=== PATIENT | female | born 1950 | race Caucasian/White ===

== ENCOUNTER 2023-02-11 09:53 | Inpatient (IN) ==
--- NOTE | 2023-02-04 08:50 | Anesthesiology Consultation ---
Date of Service February 04, 2023 Assessment & Plan (1) Encounter for pre-operative examination: Plan - cardiology clearance 01/31/23: "...low cardiac risk." - cardiology 11/25/22: "...follow-up of dyslipidemia and mild mitral valve diseas e, hypertension...doing well since last evaluation...1 episode in the fall of chest discomfort and was seen in the ER was felt to be due to GERD. No cardiac issues were found at that time and the chest pain resolved and has not re occurred...hypertension well-controlled...will update echocardiogram..." subsequently completed 12/2022, mild valvular changes. 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 Chart Review Chart Review: Acceptable Risk for Surgery and Patient NOT seen in Pre Admission Testing History Surgery Operation Date: 02/11/23 11:25 Proposed Procedures p L4-L5 Decompression and Fusion, Spinal Cord Monitoring - Burt Guerrero DO Height/Weight Height: 5 ft 4 in Weight: 61.689 kg Allergies Allergy/AdvReac Type Severity Reaction Status Date / Time dicyclomine [From Bentyl] Allergy Unknown Hives Verified 02/03/23 08:31 Sulfa (Sulfonamide Allergy Unknown Hives Verified 02/03/23 08:31 Antibiotics) Medications Home Medications Medication Instructions Recorded Confirmed Last Taken Cbd Oil 1 dose topical UD PRN Pain 02/03/23 02/03/23 Unknown Fb Guard 1 dose PO UD PRN Diarrhea 02/03/23 02/03/23 Unknown Fd Guard 1 dose PO UD PRN Diarrhea 02/03/23 02/03/23 Unknown baclofen 10 mg tablet 10 mg PO HS 02/03/23 02/03/23 Unknown calcium-vitamin D3-vitamin K 500 1 tab PO QAM 02/03/23 02/03/23 Unknown mg-100 unit-40 mcg chewable tablet cevimeline 30 mg capsule 1 cap PO BID 02/03/23 02/03/23 Unknown cyclosporine 0.05 % eye drops in a 1 drp ophthalmic (eye) BID 02/03/23 02/03/23 Unknown dropperette (Restasis) hydrochlorothiazide 25 mg tablet 25 mg PO QAM 02/03/23 02/03/23 Unknown hydroxychloroquine 200 mg tablet 200 mg PO BID 02/03/23 02/03/23 Unknown latanoprost 0.005 % eye drops 1 drp ophthalmic (eye) QPM 02/03/23 02/03/23 Unknown multivitamin 2 tab PO QAM 02/03/23 02/03/23 Unknown omeprazole 20 mg capsule,delayed 20 mg PO QAM 02/03/23 02/03/23 Unknown release simvastatin 20 mg tablet 20 mg PO HS 02/03/23 02/03/23 Unknown valsartan 80 mg capsule 80 mg PO QAM 02/03/23 02/03/23 Unknown Past Medical History Medical History (Updated 02/04/23 @ 08:56 by Olga Gonzalez PA-C) Acid reflux GI symptoms Summer 2022/multiple testing (-) f/u with GI,abigail/romeo 02/03/23. History of high cholesterol History of kidney stones History of skin cancer removed. HTN (hypertension) Nausea and vomiting after administration of anesthetic agent Sjogren's disease Spinal stenosis Past Surgical History Surgical History History of bilateral cataract extraction History of colonoscopy History of endoscopy History of hysterectomy COMPLETE History of partial hysterectomy History of urologic surgery for removal of kidney stones. History of vitrectomy Social History Smoking Status: Never smoker Do You Dip or Chew Tobacco: No Hx Alcohol Use: No Hx Substance Use: No substance use type: does not use Lab Results Anesthesia Preop Results Results Anesthesia Widget: WBC 4.13 K/ul (4.8-10.8) L 01/31/23 Hgb 11.9 g/dl (12.0-16.0) L 01/31/23 Hct 35.1 % (37.0-47.0) L 01/31/23 Plt 278 K/uL (130-400) 01/31/23 Na 140 mmol/L (136-145) 01/31/23 K 3.9 mmol/L (3.5-5.1) 01/31/23 Cl 103 mmol/L (98-107) 01/31/23 CO2 30 mmol/L (21-32) 01/31/23 BUN 14 mg/dl (6-23) 01/31/23 Creat 0.85 mg/dl (0.6-1.2) 01/31/23 Glucose Level 91 mg/dl (70-99(Fasting)) 01/31/23 PT 11.6 Seconds (9.0-12.0) 01/31/23 PTT 26.7 Seconds (21.0-31.0) 01/31/23 INR 1.1 (0.9-1.1) 01/31/23 Urine Color Yellow 01/31/23 Urine Appearance Clear (Clear) 01/31/23 Urine pH 7.0 (4.5-7.5) 01/31/23 Urine Specific Venus 1.008 (1.000-1.030) 01/31/23 Urine Protein Negative (Negative) 01/31/23 Urine Glucose (UA) Negative (Negative) 01/31/23 Urine Ketones Negative (Negative) 01/31/23 Urine Blood Negative (Negative) 01/31/23 Urine Nitrite Negative (Negative) 01/31/23 Urine Bilirubin Negative (Negative) 01/31/23 Urine Urobilinogen Negative (Negative) 01/31/23 Urine Leukocyte Esterase 3+ (Negative) H 01/31/23 Urine WBC (Auto) 5-10 /hpf (0-5) H 01/31/23 Urine RBC (Auto) 0-4 /hpf (0-4) 01/31/23 Urine Hyaline Casts (Auto) 0 /lpf (0-5) 01/31/23 Urine Epithelial Cells (Auto) 10-20 /lpf (0-5) H 01/31/23 Urine Bacteria (Auto) Negative (Negative) 01/31/23 Blood Type B Positive 01/31/23 Antibody Screen NEGATIVE 01/31/23 Testing Chest X-Ray Date: 01/31/23 No acute cardiopulmonary findings Echocardiogram Date: 12/29/22 EF 50-55% Mild aortic regurgitation Mild mitral regurgitation Mild tricuspid regurgitation Normal pulmonary artery pressures Grade I diastolic dysfunction Stress Test Date: 04/19/18 Exercise METS 10 MPHR 101% Negative test, no evidence of myocardial ischemia or infarction Other Testing Carotid doppler 12/29/22 < 50% stenosis left carotid Minimal atherosclerotic disease right carotid
[~2023-02-11 09:53] MED LIST: ACETAMINOPHEN 500 MG TAB PO SCH; GABAPENTIN 300 MG CAP PO SCH; LR 15ML/HR IV SCH; LR 60ML/HR IV SCH; ceFAZolin 2000MG 2,000 MG/15 ML SYR IV SCH
[2023-02-11] MEDS ORDERED: PROPOFOL IV EMULSION 10 MG/ML 20 ML VIAL IV ONE (10:40)
[2023-02-11] MEDS ORDERED: fentaNYL citrate PF 100 MCG/2 ML VIAL ONE (10:40)
[2023-02-11] MEDS ORDERED: ONDANSETRON INJ 2 MG/ML 2 ML VIAL ONE (10:41)
[2023-02-11] MEDS ORDERED: ROCURONIUM BROMIDE 10 MG/ML 5 ML VIAL IV ONE (10:41)
[2023-02-11] MEDS ORDERED: MIDAZOLAM HCL 1 MG/ML 2ML VIAL ONE (10:41)
[2023-02-11] MEDS ORDERED: SUGAMMADEX SODIUM 200 MG/2 ML VIAL IV ONE (10:51)
[2023-02-11] MEDS ORDERED: LABETALOL HCL IV 5 MG/ML 20ML IV PRN (10:59)
[2023-02-11] MEDS ORDERED: PROMETHAZINE HCL 12.5 MG in SODIUM CHLORIDE 0.9% 50 ML IV PRN ×2 (10:59→15:25)
[2023-02-11] MEDS ORDERED: FLUMAZENIL 0.1 MG/1 ML 10 ML VIAL IV PRN (10:59)
[2023-02-11] MEDS ORDERED: ePHEDrine sulfate 50 MG/ML AMP IV PRN (10:59)
[2023-02-11] MEDS ORDERED: HYDROmorphone INJ 1 MG/ML SYRINGE IV PRN ×2 (10:59→15:25)
[2023-02-11] MEDS ORDERED: ONDANSETRON INJ 2 MG/ML 2 ML VIAL IV PRN ×2 (10:59→15:25)
[2023-02-11] MEDS ORDERED: NALOXONE HCL 0.4 MG/1 ML VIAL/CARP IV PRN ×2 (10:59→15:25)
--- NOTE | 2023-02-11 11:10 | History & Physical Bridge Note ---
Date of Service February 11, 2023 History & Physical Bridge Note I have examined the patient, reviewed the History & Physical and in the interval since the performance of the History & Physical I have noted the following changes of clinical significance: no changes noted
--- NOTE | 2023-02-11 11:11 | History & Physical Report ---
Date of Service February 11, 2023 Assessment & Plan (1) Neurogenic claudication due to lumbar spinal stenosis: Plan: L4-L5 decompression and fusion History of Present Illness Chief Complaint: Back and leg pain Primary Care Provider: Darci Block This is a 72-year-old female presents with chronic persistent back pain since course of nonoperative care is here for surgical invention. Allergies Allergy/AdvReac Type Severity Reaction Status Date / Time dicyclomine [From Bentyl] Allergy Unknown Hives Verified 02/11/23 10:19 Sulfa (Sulfonamide Allergy Unknown Hives Verified 02/11/23 10:19 Antibiotics) Home Medications Medication Instructions Recorded Confirmed Type Cbd Oil 1 dose topical UD PRN Pain 02/03/23 02/11/23 History Fb Guard 1 dose PO UD PRN Diarrhea 02/03/23 02/11/23 History Fd Guard 1 dose PO UD PRN Diarrhea 02/03/23 02/11/23 History baclofen 10 mg tablet 10 mg PO HS 02/03/23 02/11/23 History calcium-vitamin D3-vitamin K 500 1 tab PO QAM 02/03/23 02/11/23 History mg-100 unit-40 mcg chewable tablet cevimeline 30 mg capsule 1 cap PO BID 02/03/23 02/11/23 History cyclosporine 0.05 % eye drops in a 1 drp ophthalmic (eye) BID 02/03/23 02/11/23 History dropperette (Restasis) hydrochlorothiazide 25 mg tablet 25 mg PO QAM 02/03/23 02/11/23 History hydroxychloroquine 200 mg tablet 200 mg PO BID 02/03/23 02/11/23 History latanoprost 0.005 % eye drops 1 drp ophthalmic (eye) QPM 02/03/23 02/11/23 History multivitamin 2 tab PO QAM 02/03/23 02/11/23 History omeprazole 20 mg capsule,delayed 20 mg PO QAM 02/03/23 02/11/23 History release simvastatin 20 mg tablet 20 mg PO HS 02/03/23 02/11/23 History valsartan 80 mg capsule 80 mg PO QAM 02/03/23 02/11/23 History Past Med/Surg History Medical History (Updated 02/11/23 @ 11:11 by Burt Guerrero DO) Acid reflux GI symptoms Summer 2022/multiple testing (-) f/u with GI,abigail/helderany 02/03/23. History of high cholesterol History of kidney stones History of skin cancer removed. HTN (hypertension) Nausea and vomiting after administration of anesthetic agent Sjogren's disease Spinal stenosis Surgical History History of bilateral cataract extraction History of colonoscopy History of endoscopy History of hysterectomy COMPLETE History of partial hysterectomy History of urologic surgery for removal of kidney stones. History of vitrectomy Social History Smoking Status: Never smoker Do You Dip or Chew Tobacco: No; Hx Alcohol Use: No Hx Substance Use: No Preferred Language: Mosotho Communication Ability: Effective [employer] Radio Operator Required: No Beliefs That Will Affect Care: None Current Living Situation: Spouse Other Information That Helps Us Care for You: No Feels Safe at Home: Yes Assistive Devices: Other Assistive Devices Comment: lower partial Physical Exam Physical Exam: Patient is alert and oriented Heart regular rhythm Lungs clear Results & Data Results & Data Vital Signs (Past 12 Hours) Vital Signs Temp Pulse Resp BP Pulse Ox O2 Del Method 02/11/23 10:12 36.8 C 98 H 20 161/87 H 100 Room Air
[2023-02-11] MEDS ORDERED: SCOPOLAMINE 1 MG TDSY TD ONE (11:13)
[2023-02-11] MEDS ORDERED: Nursing to Pharmacy Communication SCH (11:15)
[2023-02-11] MEDS ORDERED: ceFAZolin 330 MG/ML 1 GM VIAL ONE (11:32)
[2023-02-11] MEDS ORDERED: BUPIVACAINE/EPINEPHRINE 0.25% 1:200,000 30 ML VIAL ONE (11:32)
[2023-02-11] MEDS ORDERED: FLOSEAL HEMOSTATIC MATRIX 10ML TOP ONE (12:18)
[2023-02-11] MEDS ORDERED: SCOPOLAMINE 1 MG TDSY TD SCH (12:30)
--- NOTE | 2023-02-11 13:14 | Operative Report ---
Post Operative Report Pre & Post Diagnosis Operation Date: 02/11/23 11:25 Pre-Op Diagnosis: Neurogenic claudication due to lumbar spinal stenosis Post-Op Diagnosis: Neurogenic claudication due to lumbar spinal stenosis I identified the patient and participated in the time-out.: Yes Procedure Operation Date: 02/11/23 11:25 Actual Procedures 1. Lumbar decompression with bilateral medial facetectomies and foraminotomies L3-L4 and L4-5 #2 posterior spinal fusion L4-5 per #3 placed posterior instrumentation L4-5 #4 interbody fusion L4-5. #5 placement Spira 14 x 26 mm cage at L4-5 #6 placement locally harvested morselized autograft in the posterior gutters. #7 placement I factor plan of the test and interbody space and posterior lateral gutters. Surgeon Burt Guerrero, Binder Lockstitch Rony Nash Estimated Blood Loss 100 Findings Consistent with Post-Op Diagnosis Specimens none Indications This is a 72-year-old female presents above-mentioned diagnosis and failing course of nonoperative care is here for surgical invention. Description of Procedure Patient was met with identified informed consent obtained. Patient was then taken to the operative suite underwent a patient placed in a prone position the Jex table top Lance frame. All bony promises well-padded eyes inspected to ensure no external pressure placed upon the. This point the lumbar spine was prepped and draped no sterile fashion. Sharp dissection with the assistance of Bovie cautery to form down to and exposing the lamina and transverse processes of L4-L5 bilaterally. From caudal cephalad. Was performed proximal laminectomy of L3 including bilateral medial facetectomies and foraminotomies addressing severe spinal stenosis. Pedicle screws were then placed in L4-5 bilaterally with assistance of fluoroscopy and the properly sized singh placed. By way of a trans foraminal approach on the right complete discectomy of L4-5 was performed endplates curetted to subcortical bleeding bone and a 14 x 26 mm Spira cage with I factor tapped in position. The rods were then compressed locked into final position bilaterally. The transverse processes of L4-5 burred to subcortically bone. I factor bone of the test and locally harvested morselized autograft was placed in the posterior gutters. 15 round VI drain inserted. The incision was then closed with 1 Vicryl to fascia 2-0 Vicryl subcutaneously and 4 Monocryl for final skin closure. Steri-Strips sterile dressings placed. Patient waken taken to PACU in stable condition. Please note spinal cord monitoring was utilized at the procedure no changes noted. Lastly Rony Nash was present at the entire surgery for the patient positioning complex portion of the surgery and final skin closure. I attest to the content of the Intraoperative Record and any orders documented therein. Any exceptions are noted below.
[2023-02-11] MEDS: fentaNYL citrate PF 100 MCG/2 ML VIAL IV PRN ×4 (13:45→14:15)
--- NOTE | 2023-02-11 14:28 | Anesthesiology Progress Note ---
Date of Service February 11, 2023 Anesthesia Post Procedure Vital Signs Vital Signs: Temp Pulse Pulse Resp BP Pulse Ox O2 Del Method 02/11/23 13:55 83 12 153/75 H 100 Oxymask 02/11/23 14:15 36.7 C 86 20 146/73 H 100 Nasal Cannula 02/11/23 14:05 90 17 147/85 H 97 Oxymask 02/11/23 13:45 90 15 150/70 H 100 Oxymask 02/11/23 13:37 36.0 C L 91 H 16 107/78 100 Oxymask 02/11/23 10:12 36.8 C 98 H 20 161/87 H 100 Room Air O2 Flow Rate 02/11/23 13:55 3 02/11/23 14:15 2 02/11/23 14:05 1 02/11/23 13:45 5 02/11/23 13:37 7 02/11/23 10:12 Pain Intensity Bilateral Lower Back: Pain Intensity: 4 Transfer of Care Handoff Completed per policy Notes Mental Status: alert / awake / arousable Patient Amnestic to Procedure: Yes Nausea / Vomiting: adequately controlled Pain: adequately controlled Airway Patency, RR, SpO2: stable & adequate BP & HR: stable & adequate Hydration State: stable & adequate Anesthetic Complications: no major complications apparent
--- NOTE | 2023-02-11 15:04 | Fluoroscopy Report ---
FL lumbar spine 2-3V CLINICAL HISTORY: L4-5 DFI COMPARISON STUDY: None. FLUOROSCOPY TIME: 15 seconds. Ka, r: 9.66 mGy FLUOROSCOPIC IMAGES: 2 FINDINGS: Fluoroscopy was provided during L4-L5 discectomy, posterior decompression and bilateral ped icle screw fusion. Hardware is intact. IMPRESSION: Fluoroscopy provided during L4-L5 discectomy, posterior decompression and bilateral pedi cleo screw fusion. ACT 112: Negative or not required by law. Electronically signed by: Gordon Santiago M.D. 02/11/2023 3:02 PM
[2023-02-11] MEDS ORDERED: ALUMINUM/MAGNESIUM SUSP 30 ML UDC PO PRN (15:25)
[2023-02-11] MEDS ORDERED: ACETAMINOPHEN 500 MG TAB PO PRN (15:25)
[2023-02-11] MEDS ORDERED: ACETAMINOPHEN 1,000 MG/100 ML VIAL IV PRN (15:25)
[2023-02-11] MEDS ORDERED: ONDANSETRON 4 MG OD TAB PO PRN (15:25)
[2023-02-11] MEDS ORDERED: LORazepam 2 MG/1 ML VIAL IV PRN (15:25)
[2023-02-11] MEDS ORDERED: DO NOT ADMINISTER FLU VACCINE PRN (15:25)
[2023-02-11] MEDS ORDERED: DO NOT ADMINISTER PNEUMOCOCCAL VACCINE PRN (15:25)
[2023-02-11] MEDS ORDERED: FAMOTIDINE 20 MG TAB PO PRN (15:25)
[2023-02-11] MEDS ORDERED: HYDROmorphone INJ 0.5 MG/0.5 ML SYR IV PRN (15:25)
[2023-02-11] MEDS ORDERED: METOCLOPRAMIDE HCL INJ 5 MG/ML 2 ML VIAL IV PRN (15:25)
[2023-02-11] MEDS ORDERED: LORazepam 0.5 MG TAB PO PRN (15:25)
[2023-02-11] MEDS ORDERED: diphenhydrAMINE Capsule 25 MG CAP PO PRN (15:25)
[2023-02-11] MEDS ORDERED: traMADol HCL 50 MG TABLET PO PRN (15:25)
[2023-02-11] MEDS ORDERED: MAGNESIUM HYDROXIDE SUSP 30 ML UDC PO PRN (15:25)
[2023-02-11] MEDS ORDERED: bisacodyL 10 MG SUPP PR PRN (15:25)
[2023-02-11] MEDS ORDERED: SOD PHOSPHATE/SOD BIPHOSPHATE ENEMA 132 ML BTL PR PRN (15:25)
[2023-02-11] MEDS ORDERED: hydrOXYzine HCl 25 MG TAB PO PRN (15:25)
[2023-02-11] MEDS: SODIUM CHLORIDE 0.9% 1000ML 1,000 ML IV SCH (15:30)
[2023-02-11] MEDS ORDERED: ARTIFICIAL TEARS OP PRN (15:41)
--- NOTE | 2023-02-11 15:51 | Consultation ---
Date of Consultation February 11, 2023 Assessment & Plan (1) Neurogenic claudication due to lumbar spinal stenosis: (2) HTN (hypertension): (3) HLD (hyperlipidemia): (4) Sjogren's disease: (5) Acid reflux: (6) History of kidney stones: Plan 72 year old presents for L3-L4; L4-L5 decompression and fusion of L4-L5 surgery under the care of Dr. Guerrero. Additional past medical history includes HTN, HLD, Sjorgren's Syndrome, and GERD. Pre-op ECHO 12/29/2022 done at [facility] in [place]: EF 50 to 55%; LV wall motion normal; mild aortic insufficiency; grade 1 diastolic dysfunction with trace mitral and tricuspid valve insufficiency. She was diagnosed with Sjorgren's Syndrome in 2018 and does not have any other underlying autoimmune diseases that she is aware of. Neurogenic claudication due to lumbar spinal stenosis: POD# 0 s/p L3-L4; L4-L5 decompression and fusion of L4-L5 surgery under the care of Dr. Guerrero. Per ortho for pain control, wound care, anticoagulation and activities. EBL: 100mL; Monitor H&H, pre op Hgb from ; trend in AM Continue incentive spirometry, demonstrated appropriate use of ISB at bedside PT/OT when appropriate HTN: Chronic stable Takes valsartan; continue Preop ECHO 12/29/2022: EF 50 to 55%; LV wall motion normal; mild aortic insufficiency; grade 1 diastolic dysfunction with trace mitral and tricuspid valve insufficiency HLD: Chronic stable Takes simvastatin; continue Sjorgren's Syndrome: Chronic stable Diagnosed 2017 No other autoimmune conditions Takes Latanoprost and Restasis; continue H/O Kidney Stones: Chronic stable 3-4 in her past One requiring surgical removal Was placed on HCTZ for this; and remains on it; also providing anti-HTN properties; continue GERD: Chronic stable Takes Protonix; continue Disposition: PCP: Dr. Darci Block CODE STATUS: Full code VTE prophylaxis: Per admitting team I spent a total of 60 minutes coordinating, documenting, and providing care for this patient excluding time spent in the performance of separately billed services. All of the aforementioned completed while collaborating with the as signed attending physician for a full treatment plan. Please see their addendum for further details. Supervising Physician Co-Signing Physician Notes I have seen and examined the patient and have discussed the case with the provider above. I agree with the assessment and plan as stated.72 yo F s/p lumbar surgery earlier today. Pain is well controlled, denies any chest pain, SOB, numbness in her feet or other issues. Reviewed medications with her and continued as appropriate. She does use flonase and would prefer to take this while here which was added. She also takes Baclofen but is fine to hold off on this given the other pain medication being given to control the post operative pain. My exam reflects that noted above. She is hemodynamically stable and afebrile and oxygenating well on room air. Cont plan as noted above. Thank you for this consultation. DO Kiet History of Present Illness Requesting Physician: Dr. Guerrero Reason for Consultation: Post- op medical management Attending Physician: Burt Guerrero DO History of Present Illness 72-year-old presents to the [facility] for an elective L3-L4; L4-L5 decompression and fusion of L4-L5 surgery under the care of Dr. Guerrero after failed outpatient nonoperative conservative management. Additional past medical history includes HTN, HLD, Sjorgrens syndrome, and GERD. Pre-op ECHO 12/29/2022 done at [facility] in [place]: EF 50 to 55%; LV wall motion normal; mild aortic insuf ficiency; grade 1 diastolic dysfunction with trace mitral and tricuspid valve insufficiency. She was diagnosed with Sjorgren's Syndrome in 2018 and does not have any other underlying autoimmune diseases that she is aware of. She takes the latanoprost primarily for glaucoma pressures due to extesnvei family history of glaucoma, but does take Restasis for Sjorgren's. She takes HCTZ for a history of kidney stones; has had to have a cholecystectomy years ago, but continues to take the HCTZ, which her PCP also has her on for HTN. She does have CBD oil on her med list, but she said she has not taken it for a few months. No other tobacco, alcohol or illicit drug use. She does not have a carter catheter post op. Patient denies headache, dizziness, visual or auditory changes, chest pain, palpitations, nausea, vomiting, diarrhea, abdominal pain, peripheral neuropathy or other complaints. She is sitting upright in her hospital bed in no apparent distress. She is able to answer all questions appropriately. She does complain of 4/10 incisional pain. This is her first back surgery and we discussed the process and appropriate pain control methods, and went into details of available pain medic ation regimen. Her BP in the room was 139/70. [facility] hospitalist service was consulted for postop medical management. Thank you kindly for this consultation should anyone require assistance please feel free to contact the [facility] hospitalist service 31/01 via [employer]sey text. Please see A/P for further details. Allergies Allergy/AdvReac Type Severity Reaction Status Date / Time dicyclomine [From Bentyl] Allergy Unknown Hives Verified 02/11/23 10:19 Sulfa (Sulfonamide Allergy Unknown Hives Verified 02/11/23 10:19 Antibiotics) Home Medications Medication Instructions Recorded Confirmed Type Cbd Oil 1 dose topical UD PRN Pain 02/03/23 02/11/23 History Fb Guard 1 dose PO UD PRN Diarrhea 02/03/23 02/11/23 History Fd Guard 1 dose PO UD PRN Diarrhea 02/03/23 02/11/23 History baclofen 10 mg tablet 10 mg PO HS 02/03/23 02/11/23 History calcium-vitamin D3-vitamin K 500 1 tab PO QAM 02/03/23 02/11/23 History mg-100 unit-40 mcg chewable tablet cevimeline 30 mg capsule 1 cap PO BID 02/03/23 02/11/23 History cyclosporine 0.05 % eye drops in a 1 drp ophthalmic (eye) BID 02/03/23 02/11/23 History dropperette (Restasis) hydrochlorothiazide 25 mg tablet 25 mg PO QAM 02/03/23 02/11/23 History hydroxychloroquine 200 mg tablet 200 mg PO BID 02/03/23 02/11/23 History latanoprost 0.005 % eye drops 1 drp ophthalmic (eye) QPM 02/03/23 02/11/23 History multivitamin 2 tab PO QAM 02/03/23 02/11/23 History omeprazole 20 mg capsule,delayed 20 mg PO QAM 02/03/23 02/11/23 History release simvastatin 20 mg tablet 20 mg PO HS 02/03/23 02/11/23 History valsartan 80 mg capsule 80 mg PO QAM 02/03/23 02/11/23 History fluticasone propionate 50 1 spray intranasal HS 02/11/23 02/11/23 History mcg/actuation nasal spray,suspension Patient History Medical History (Updated 02/11/23 @ 16:24 by SAJI Yanez) Acid reflux GI symptoms Summer 2022/multiple testing (-) f/u with GI,abigail/helderany 02/03/23. History of high cholesterol History of kidney stones History of skin cancer removed. HLD (hyperlipidemia) HTN (hypertension) Nausea and vomiting after administration of anesthetic agent Sjogren's disease Spinal stenosis Surgical History (Updated 02/11/23 @ 16:24 by SAJI Yanez) History of bilateral cataract extraction History of colonoscopy History of endoscopy History of hysterectomy COMPLETE History of partial hysterectomy History of urologic surgery for removal of kidney stones. History of vitrectomy Social History Smoking Status: Never smoker Do You Dip or Chew Tobacco: No; Hx Alcohol Use: No Hx Substance Use: No Preferred Language: Yi Communication Ability: Effective Senior Counsel Commercial Required: No Beliefs That Will Affect Care: None Current Living Situation: Spouse Other Information That Helps Us Care for You: No Feels Safe at Home: Yes Assistive Devices: Other Assistive Devices Comment: lower partial Review of Systems Review of Systems: Neuro: (-) Falls, trauma, slurred speech HEENT: (-) BERTRAND, dizziness, dysphagia, visual or auditory changes CV: (-) CP, palpitations, swelling Resp: (-) SOB GI: (-) appetite changes, N/V/D, bowel changes : (-) urinary changes Skin: (-) rashes Psych: (-) anxiety, depression Physical Exam Physical Exam: Neuro: AAOx4, PERRLA, no aphagia, memory changes, CNII-XII grossly intact HEENT: head normocephalic, moist mucus membranes CV: S1/S2, (-) M/G/R, (-) edema, cap refill < 3 seconds. VI drain x1 fidencio red bloody output Resp: Lungs CTA in all truong. On RA GI: Abdomen S/NT/ND, Ax4 bowel sounds, (-) CVA tenderness Musculoskeletal: 5/5 B/L UE strength, 5/5 B/L LE strength. No gait disturbance Skin: (-) rashes , (-) erythema. Psych: euthymic mood Results & Data Vital Signs (Past 12 Hours) Vital Signs Temp Pulse Pulse Resp BP Pulse Ox O2 Del Method 02/11/23 15:36 36.8 C 79 18 122/74 100 Room Air 02/11/23 14:45 36.7 C 80 12 133/61 99 Nasal Cannula 02/11/23 14:30 36.7 C 79 21 133/61 100 Nasal Cannula 02/11/23 13:55 83 12 153/75 H 100 Oxymask 02/11/23 14:15 36.7 C 86 20 146/73 H 100 Nasal Cannula 02/11/23 14:05 90 17 147/85 H 97 Oxymask 02/11/23 13:45 90 15 150/70 H 100 Oxymask 02/11/23 13:37 36.0 C L 91 H 16 107/78 100 Oxymask 02/11/23 10:12 36.8 C 98 H 20 161/87 H 100 Room Air O2 Flow Rate 02/11/23 15:36 02/11/23 14:45 2 02/11/23 14:30 2 02/11/23 13:55 3 02/11/23 14:15 2 02/11/23 14:05 1 02/11/23 13:45 5 02/11/23 13:37 7 02/11/23 10:12 Diagnostic Findings Lumbar Spine X-Ray 02/11/23 11:25 FL lumbar spine 2-3V CLINICAL HISTORY: L4-5 DFI COMPARISON STUDY: None. FLUOROSCOPY TIME: 15 seconds. Ka, r: 9.66 mGy FLUOROSCOPIC IMAGES: 2 FINDINGS: Fluoroscopy was provided during L4-L5 discectomy, posterior decompression and bilateral pedicle screw fusion. Hardware is intact. IMPRESSION: Fluoroscopy provided during L4-L5 discectomy, posterior decompression and bilateral pedicle screw fusion. ACT 112: Negative or not required by law. Electronically signed by: Gordon Santiago M.D. 02/11/2023 3:02 PM
[2023-02-11] MEDS: CHECK SCOPOLAMINE PATCH PLACEMENT SCH (16:30)
[2023-02-11] MEDS: ceFAZolin 1000MG 1,000 MG/7.5 ML SYR IV SCH (18:43)
[2023-02-11] MEDS: DOCUSATE SODIUM/SENNA 50/8.6MG TAB PO SCH (20:12)
[2023-02-11] MEDS: FLUTICASONE PROPIONATE NA SPR 16 GM BTL NAE SCH (20:13)
[2023-02-11] MEDS: HYDROXYCHLOROQUINE SULFATE 200 MG TAB PO SCH (20:13)
[2023-02-11] MEDS: LATANOPROST 0.005% OP SOLN 2.5 ML BTL OP SCH (20:14)
[2023-02-11] MEDS: SIMVASTATIN 20 MG TAB PO SCH (20:14)
[2023-02-11] MEDS: oxyCODONE HCL IR 5 MG TAB (IMMEDIATE RELEASE) PO PRN (21:02)
[2023-02-12] MEDS: CHECK SCOPOLAMINE PATCH PLACEMENT SCH ×4 (00:55→23:03)
[2023-02-12] MEDS: SODIUM CHLORIDE 0.9% 1000ML 1,000 ML IV SCH (02:19)
[2023-02-12] MEDS: ceFAZolin 1000MG 1,000 MG/7.5 ML SYR IV SCH (03:05)
[2023-02-12] MEDS: oxyCODONE HCL IR 5 MG TAB (IMMEDIATE RELEASE) PO PRN ×2 (05:53→20:57)
[2023-02-12] MEDS: POLYETHYLENE (MIRALAX) 17 GM PACK PO SCH ×4 (05:53→23:03)
[2023-02-12 06:03] LABS: Basophils # (auto) 0.04 K/uL (0-0.2); Basophils % (auto) 0.5 %; Eosinophils # (auto) 0.03 K/uL (0-0.50); Eosinophils % (auto) 0.4 %; Hematocrit (blood only) 30.7 % (37.0-47.0); Hemoglobin 10.5 g/dl (12.0-16.0); Immature Granulocytes # (auto) 0.02 K/uL (0.01-0.20); Immature Granulocytes % (auto) 0.3 %; Lymphocytes # (auto) 0.45 K/uL (1.2-3.4); Lymphocytes % (auto) 5.7 %; Mean Corpuscular Hemoglobin 30.4 pg (25.0-34.0); Mean Corpuscular Hgb Conc 34.2 g/dL (32.0-36.0); Mean Platelet Volume 10.1 fL (9.4-12.4); Monocytes # (auto) 0.71 K/uL (0.11-0.59); Neutrophils # (auto) 6.63 K/uL (1.40-6.50); Neutrophils % (auto) 84.1 %; Platelet Count 221 K/uL (130-400); RDW Coefficient of Variation 12.3 % (11.5-14.5); RDW Standard Deviation 40.2 fL (36.4-46.3); Red Blood Count 3.45 M/uL (4.20-5.40); White Blood Count 7.88 K/ul (4.8-10.8)
[2023-02-12 06:15] LABS: Calcium 8.9 mg/dl (8.6-10.3); Creatinine Clr Calc Pharmacy 63.7 ml/min; Est GFR (Non-African American) 87.2 ml/min; Potassium 3.6 mmol/L (3.5-5.1)
[2023-02-12] MEDS: PANTOprazole 40 MG TAB PO SCH (08:04)
[2023-02-12] MEDS: HYDROXYCHLOROQUINE SULFATE 200 MG TAB PO SCH ×2 (08:04→20:54)
[2023-02-12] MEDS: hydroCHLOROthiazide 25 MG TAB PO SCH (08:05)
[2023-02-12] MEDS: dexAMETHasone 6 MG in SYRINGE 0 ML IV SCH (08:05)
[2023-02-12] MEDS: VALSARTAN 80 MG TAB PO SCH (08:05)
--- NOTE | 2023-02-12 10:01 | Orthopedic Progress Note ---
Date of Service February 12, 2023 Assessment & Plan (1) Neurogenic claudication due to lumbar spinal stenosis: Plan: Today we will begin physical therapy monitor VI operatively discharge home in the next few days. Admission and Anticipated Discharge Date Admission Date: February 11, 2023 Subjective back pain controlled leg pain markedly improved Physical Exam Physical Exam: Patient is in the chair at the bedside. Is comfortable. Is good strength testing. Results & Data Vital Signs (Past 12 Hours) Vital Signs Temp Pulse Resp BP Pulse Ox O2 Del Method 02/12/23 06:12 36.9 C 89 18 101/68 96 Room Air 02/12/23 03:38 36.9 C 89 17 120/73 96 Room Air 02/11/23 22:25 36.8 C 89 18 117/74 93 Room Air
--- NOTE | 2023-02-12 12:42 | Hospitalist Progress Note ---
Date of Service February 12, 2023 Assessment & Plan (1) Neurogenic claudication due to lumbar spinal stenosis: (2) HTN (hypertension): (3) HLD (hyperlipidemia): (4) Sjogren's disease: (5) Acid reflux: (6) History of kidney stones: Plan 72 year old woman who presented for L3-L4; L4-L5 decompression and fusion of L4- L5 surgery under the care of Dr. Guerrero. Past medical history includes HTN, HLD, Sjorgren's Syndrome, and GERD. Pre-op ECHO 12/29/2022 done at [facility] in [place]: EF 50 to 55%; LV wall motion normal; mild aortic insufficiency; grade 1 diastolic dysfunction with trace mitral and tricuspid valve insufficiency. She was diagnosed with Sjorgren's Syndrome in 2018 Neurogenic claudication due to lumbar spinal stenosis: POD# 1 s/p L3-L4; L4-L5 decompression and fusion of L4-L5 surgery under the care of Dr. Guerrero. EBL: 100mL; Hb is 10.5 Was 11.9 on 01/31/23 Monitor Hb Continue PT Wound care/activity per Ortho Pain is controlled Hypertension: Stable Continue valsartan HLD: Continue simvastatin Sjorgren's Syndrome: Diagnosed 2018 Continue Latanoprost and Restasis H/O Kidney Stones: 3-4 in her past One requiring surgical removal Was placed on HCTZ for this GERD: Continue protonix Disposition: PCP: Dr. Darci Block CODE STATUS: Full code I spent a total of 40 minutes coordinating, documenting and providing care for this patient excluding time spent in performance of separately billed services Admission and Anticipated Discharge Date Admission Date: February 11, 2023 Subjective Patient seen and examined Reports significant improvement of her radiculopathic pain since surgery Reports surgical site pain is well controlled Denied nausea, vomiting, abd pain Yet to move her bowels Denied cough, chest pain, SOB Denied dysuria, freq, urgency Physical Exam Constitutional: + well hydrated; no acute distress Eyes: PERRL, conjunctivae normal, anicteric sclerae ENMT: external ear and nose normal, oropharynx normal Respiratory: normal respiratory effort, lungs clear to auscultation Cardiovascular: Rate/Rhythm: regular rate and regular rhythm S1 S2 Gastrointestinal (Abdomen): normal bowel sounds, soft, nontender, no hepatosplenomegaly Musculoskeletal: Clean dressing over surgical site Neurologic: PERRL, EOMI, accommodation nl, no face palsy, no dysarthria Psychiatric: A+Ox3, euthymic affect Results & Data Results & Data Vital Signs (Past 12 Hours) Vital Signs Temp Pulse Resp BP Pulse Ox O2 Del Method 02/12/23 11:48 37.1 C 90 18 119/74 95 Room Air 02/12/23 06:12 36.9 C 89 18 101/68 96 Room Air 02/12/23 03:38 36.9 C 89 17 120/73 96 Room Air Laboratory Results Abnormal lab results 02/12/23 Range/Units 05:28 RBC 3.45 L (4.20-5.40) M/uL Hgb 10.5 L (12.0-16.0) g/dl Hct 30.7 L (37.0-47.0) % Neut # (Auto) 6.63 H (1.40-6.50) K/uL Lymph # (Auto) 0.45 L (1.2-3.4) K/uL [place] # (Auto) 0.71 H (0.11-0.59) K/uL
[2023-02-12] MEDS: DOCUSATE SODIUM/SENNA 50/8.6MG TAB PO SCH (20:53)
[2023-02-12] MEDS: FLUTICASONE PROPIONATE NA SPR 16 GM BTL NAE SCH (20:54)
[2023-02-12] MEDS: SIMVASTATIN 20 MG TAB PO SCH (20:54)
[2023-02-12] MEDS: LATANOPROST 0.005% OP SOLN 2.5 ML BTL OP SCH (20:55)
[2023-02-13] MEDS: POLYETHYLENE (MIRALAX) 17 GM PACK PO SCH (06:04)
[2023-02-13] MEDS: oxyCODONE HCL IR 5 MG TAB (IMMEDIATE RELEASE) PO PRN (06:07)
[2023-02-13 06:26] LABS: Hematocrit (blood only) 27.6 % (37.0-47.0); Hemoglobin 9.4 g/dl (12.0-16.0); Mean Corpuscular Hemoglobin 30.6 pg (25.0-34.0); Mean Corpuscular Hgb Conc 34.1 g/dL (32.0-36.0); Mean Corpuscular Volume 89.9 fL (80.0-100.0); Mean Platelet Volume 10.4 fL (9.4-12.4); Platelet Count 233 K/uL (130-400); RDW Coefficient of Variation 12.4 % (11.5-14.5); Red Blood Count 3.07 M/uL (4.20-5.40); White Blood Count 11.85 K/ul (4.8-10.8)
[2023-02-13 06:32] LABS: BUN Creatinine Ratio 21.2 (10-20); Calcium 9.4 mg/dl (8.6-10.3); Creatinine Clr Calc Pharmacy 67.5 ml/min; Est GFR (Non-African American) 88.9 ml/min
[2023-02-13] MEDS: HYDROXYCHLOROQUINE SULFATE 200 MG TAB PO SCH (08:24)
[2023-02-13] MEDS: PANTOprazole 40 MG TAB PO SCH (08:24)
[2023-02-13] MEDS: hydroCHLOROthiazide 25 MG TAB PO SCH (08:24)
[2023-02-13] MEDS: VALSARTAN 80 MG TAB PO SCH (08:24)
[2023-02-13] MEDS: CHECK SCOPOLAMINE PATCH PLACEMENT SCH (08:25)
[2023-02-13] MEDS: dexAMETHasone 6 MG in SYRINGE 0 ML IV SCH (08:25)
--- NOTE | 2023-02-13 10:03 | Discharge Summary ---
Date of Service February 13, 2023 Admission HPI Per Admitting Provider This is a 72-year-old female presents with chronic persistent back pain since course of nonoperative care is here for surgical invention. Principal Diagnosis Lumbar spinal stenosis with radiculopathy Discharge Data Allergies Allergy/AdvReac Type Severity Reaction Status Date / Time dicyclomine [From Bentyl] Allergy Unknown Hives Verified 02/11/23 10:19 Sulfa (Sulfonamide Allergy Unknown Hives Verified 02/11/23 10:19 Antibiotics) Consultations 02/11/23 15:25 Consult Hospitalist Routine Procedures Performed Operation Date: 02/11/23 11:25 Actual Procedures p L4-L5 Decompression and Fusion, Spinal Cord Monitoring(Not Applicable) - Burt Guerrero DO Ordered Studies 02/11/23 11:25 FL lumbar spine 2-3V Routine Hospital Course (1) Neurogenic claudication due to lumbar spinal stenosis: Patient underwent lumbar decompression fusion tolerated as well as taken to orthopedic for postop labor postop and when she been ambulating progressed to postop day #2. VI drain decreased reportedly. Excellent strength testing. Pain well controlled. Subsequent discharge home. Discharge orders instructions found in chart for further review. Total Time Total Time Spent Total Time Spent (In Minutes): 20 minutes Discharge Plan Discharge Items Patient Disposition: Home - Self-Care Reason For Visit: Spondylolisthesis, Lumbar Region Discharge Diagnosis: Lumbar spinal stenosis with neurogenic claudication Activity: As commented below Non-emergency contact: Primary Care Provider Call non-emergency contact if: you have any medication questions Follow-up/Referrals: Darci Block [Primary Care Provider] - Diet: Regular Addtl Attending Provider Instructions: ACTIVITY RECOMMENDATIONS: SELF CARE INSTRUCTIONS AFTER THORACIC/LUMBAR FUSIONS 1. You may walk to your tolerance. It is good exercise for your legs and back. Expect some back and intermittent leg aches and pains. 2. You may perform "counter-top" level activities (make a sandwich, lencho with a project, etc.). 3. No bending or lifting of more than 10 pounds or back twisting of any nature (roll like a log when turning in bed). 4. You may ride in a car for 20-30 minutes at a time. No driving until after your first visit with your doctor. 5. Frequent changes of position and restricting sitting to 30 minutes at a time will help limit the amount of back spasms and stiffness you may experience. 6. You may discontinue the use of ambulatory aids (cane, crutches, etc.) once your strength and confidence allow. 7. 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 Do not take a tub bath, sit in a hot tub or go into a swimming pool until after your first recheck in the office. SPECIAL CARE INSTRUCTIONS: VERY IMPORTANT TO READ AND REVIEW A. Your surgical incision has been closed with a cosmetic suture under the skin that will dissolve in about 6 weeks. In 14 days, you can use a pair of clean scissors and cut the suture that is left outside of the skin at the ends of your incision. 1. The small skin tapes can be removed 7 days after surgery if they have not fallen off by that point. 2. You may keep the wound open to air as much as possible to promote healing after post-op day number 5 unless told otherwise by your doctor. 3. If you think the wound looks like it is becoming infected (redness or worsening drainage) and/or you are experiencing fever, chill or worsening back pain and muscle spasms, contact the office so that we may evaluate you as soon as possible. B. Complications are uncommon, but please contact us if you have any signs or symptoms of: 1. wound infection (fever higher than 102.5 degrees F, redness, separation of wound, drainage, or increasing pain from the incision) 2. blood clots in legs (pain, swelling, redness and warmth in legs) 3. urinary tract infection (fever higher than 102.5 degrees F, burning upon urination or increased frequency of urination) 4. nerve problems (inability to walk on your toes or heels, numbness, loss of bowel or bladder control) 5. any other symptoms that concern you C. Please call the office at if you have any concerns or questions about your operation or recovery. D. No smoking! Smoking drastically decreases the chance of a solid fusion. E. Do not take any anti-inflammatory medications (Indocin, Advil, Motrin, Aspirin, Naprosyn, etc.) as these may inhibit the chance of a solid fusion. Tylenol is okay to take for pain. MANAGING PAIN AFTER SPINAL SURGERY 1. Narcotic medication is intended for short-term use and will be provided for surgical pain. Surgical pain usually lasts for a period of 4-6 weeks. Narcotic medication includes Percocet, Vicodin, Darvocet, Tylenol #3 or Lortab. 2. Longer-term pain is more appropriately treated with non-narcotic medication such as Tylenol ES. 3. Muscle spasm is not appropriately treated with narcotics. Muscle relaxers such as Soma, Flexeril or Skelaxin can be used along with Tylenol ES. 4. Remember that we all live with some "aches and pains". This is not unusual or uncommon after an injury or as we get older. a. Back pain is expected and may include muscle spasms for 4 to 6 weeks after surgery. The pain should gradually improve. If the pain worsens for no apparent reason, please contact the office. b. Intermittent leg pain may also be experienced and should not be concerned about unless it worsens for no apparent reason. If so, please contact the office. 5. We will provide appropriate medication within the normal guidelines of their prescribed use. We will also be very cautious and aware of potential abuse and extended duration of patients' medication needs. a. Pain medications are for your comfort and to assist with sleep and rest so that the tissue can heal. They are not provided in order to return to normal activity and should not be used through the day. To do so or worsening pain at night can result from ongoing tissue damage and development of tolerance to the prescribed medicine. 6. Please allow 2-3 days to process refills. Prescriptions will not be mailed but must be picked up at the office. FOLLOW UP VISIT: Keep your scheduled follow-up appointment. Any questions, please call the office at . Pending Studies at Discharge: No Stand-Alone Forms: My [facility] Social Touch, Smoking Cessation Medications and DC Order Prescriptions: New tramadol 50 mg tablet 50 mg PO Q6H PRN (Reason: pain, moderate) Qty: 30 0RF oxycodone 5 mg tablet 5 mg PO Q6H PRN (Reason: pain) Qty: 30 0RF Continued latanoprost 0.005 % Drops 1 drp OPHTHALMIC (EYE) QPM Patient Comments: each eye simvastatin 20 mg Tablet 20 mg PO HS valsartan 80 mg Capsule 80 mg PO QAM omeprazole 20 mg Capsule,Delayed Release(Dr/Ec) 20 mg PO QAM hydrochlorothiazide 25 mg Tablet 25 mg PO QAM cyclosporine [Restasis] 0.05 % Dropperette 1 drp OPHTHALMIC (EYE) BID Patient Comments: each eye multivitamin Tablet,Chewable 2 tab PO QAM calcium-vitamin D3-vitamin K 500-100-40 mg-unit-mcg Tablet,Chewable 1 tab PO QAM Patient Comments: calcium chew with vitamin d and k baclofen 10 mg Tablet 10 mg PO HS cevimeline 30 mg Capsule 1 cap PO BID hydroxychloroquine 200 mg Tablet 200 mg PO BID Fb Guard 1 dose PO UD PRN (Reason: Diarrhea) Fd Guard 1 dose PO UD PRN (Reason: Diarrhea) Cbd Oil 1 dose topical UD PRN (Reason: Pain) Patient Comments: NO USE OVER THE LAST WEEK fluticasone propionate 50 mcg/actuation [place],Suspension 1 spray INTRANASAL HS Rx Instructions: 1 spray in each nostril qHS Discharge Orders: Discharge Order (Routine); Ordered 02/13/23 Ordered By: Burt Guerrero Admission Data Admit Date/Time: 02/11/23 13:19 Attending Provider: Burt Guerrero Admit Provider: Burt Guerrero Primary Care Provider: Darci Block Other Providers: Jeimy Santa ; Iris Arizmendi I.
--- NOTE | 2023-02-13 11:33 | Hospitalist Progress Note ---
Date of Service February 13, 2023 Assessment & Plan (1) Neurogenic claudication due to lumbar spinal stenosis: (2) HTN (hypertension): (3) HLD (hyperlipidemia): (4) Sjogren's disease: (5) Acid reflux: (6) History of kidney stones: Plan 72 year old woman who presented for L3-L4; L4-L5 decompression and fusion of L4- L5 surgery under the care of Dr. Guerrero. Past medical history includes HTN, HLD, Sjorgren's Syndrome, and GERD. Pre-op ECHO 12/29/2022 done at [facility] in [place]: EF 50 to 55%; LV wall motion normal; mild aortic insufficiency; grade 1 diastolic dysfunction with trace mitral and tricuspid valve insufficiency. She was diagnosed with Sjorgren's Syndrome in 2018 Neurogenic claudication due to lumbar spinal stenosis: POD# 2 s/p L3-L4; L4-L5 decompression and fusion of L4-L5 surgery under the care of Dr. Guerrero. EBL: 100mL; Hb is 9.4 Was 11.9 on 01/31/23 Pain is controlled Post op anemia. Likely from blood loss + dilutional PCP to monitor Hypertension: Stable Continue home meds HLD: Continue simvastatin Sjorgren's Syndrome: Diagnosed 2018 Continue Latanoprost and Restasis H/O Kidney Stones: 3-4 in her past One requiring surgical removal GERD: Continue protonix I spent a total of 35 minutes coordinating, documenting and providing care for this patient excluding time spent in performance of separately billed services Admission and Anticipated Discharge Date Admission Date: February 11, 2023 Subjective Patient seen and examined Reports surgical site pain is well controlled Denied any new complaints Physical Exam Constitutional: + well hydrated; no acute distress Eyes: PERRL, conjunctivae normal, anicteric sclerae ENMT: external ear and nose normal, oropharynx normal Respiratory: normal respiratory effort, lungs clear to auscultation Cardiovascular: Rate/Rhythm: regular rate and regular rhythm S1 S2 Gastrointestinal (Abdomen): normal bowel sounds, soft, nontender, no hepatosplenomegaly Musculoskeletal: Clean dressing over surgical site Neurologic: PERRL, EOMI, accommodation nl, no face palsy, no dysarthria Psychiatric: A+Ox3, euthymic affect Results & Data Results & Data Vital Signs (Past 12 Hours) Vital Signs Temp Pulse Resp BP Pulse Ox O2 Del Method 02/13/23 08:23 96 H 125/74 02/13/23 05:58 36.9 C 90 18 134/83 96 Room Air Laboratory Results Abnormal lab results 02/13/23 02/13/23 Range/Units 05:38 05:38 WBC 11.85 H (4.8-10.8) K/ul RBC 3.07 L (4.20-5.40) M/uL Hgb 9.4 L (12.0-16.0) g/dl Hct 27.6 L (37.0-47.0) % BUN/Creatinine Ratio 21.2 H (10-20) Glucose 131 H (70-99(Fasting)) mg/dl
== END 2023-02-13 12:21 | disposition home or self-care (01) | DRG 454 ==
LOC: ASU 09:53 → 3E 13:19